=== PATIENT | male | born 1965 | race Caucasian/White ===

== ENCOUNTER 2022-01-05 13:18 | Emergency (ER) | payer BC, SELFPAY ==
[2022-01-05 14:04] VITALS: BP 131/77; PULSE 84; RESP 16; TEMP 37.2; O2SAT 96; BMI 27.6
--- NOTE | 2022-01-05 15:11 | CRLHL7_ITS ---
For Patients: As a result of the Century Cures Act, medical imaging exams and procedure reports are released immediately into your electronic medical record. You may view this report before your referring provider. If you have questions, please contact your health care provider. INDICATION: Right lower quadrant. TECHNIQUE: CT abdomen and pelvis acquired with 100 cc Isovue 370 IV contrast. COMPARISON: None. FINDINGS: Lower chest: Unremarkable. Liver: Unremarkable. Normal in size and attenuation. No suspicious masses. Gallbladder and bile ducts: Unremarkable. No stones or inflammation. No biliary dilatation. Pancreas: Unremarkable. No mass or inflammation. Spleen: Splenic calcifications. Normal in size. No masses. Adrenal glands: Unremarkable. No nodules. Kidneys: Tiny hypodensities in both kidneys, too small to characterize. No suspicious masses, stones, or hydronephrosis. GI tract: Mild sigmoid colonic wall thickening with mesenteric inflammatory stranding. Colonic diverticulosis. No bowel obstruction. Normal appendix. Vasculature: Abdominal aorta is normal in caliber. Mesenteric arteries are patent. Lymph nodes: No lymphadenopathy. Peritoneum/Abdominal Wall: Tiny fat containing umbilical hernia. No sign of mass or infiltration. No free air or significant free fluid. Pelvis: Mild prostatomegaly, abutting the base of the bladder. Mild diffuse circumferential bladder wall thickening. Bones: Mild age-indeterminate compression deformities of T10 and T12. IMPRESSION: Findings suggestive of focal sigmoid colitis/uncomplicated diverticulitis. No drainable fluid collections. Recommend correlation with prior age-appropriate screening colonoscopy. Mild diffuse circumferential bladder wall thickening. Recommend correlation with urinalysis if UTI suspected. No appendicitis, as questioned. Mild age-indeterminate T10 and T12 compression deformities. Recommend correlation for point tenderness. Please note that all CT scans at this facility use dose modulation, iterative reconstruction, and/or weight-based dosing when appropriate to reduce radiation dose to as low as reasonably achievable. Dictated by Jose Ramon Roth MD @ 01/05/2022 4:36:39 PM (Electronically Signed)
[2022-01-05 15:37] LABS: Appearance Urine Clear (Clear); Bilirubin Urine Negative (Negative); Blood Urine Negative (Negative); Color Urine Yellow (Yellow); Glucose Urine Negative (Negative); Ketones Urine Negative (Negative); Leukocyte Esterase Urine Negative (Negative); Nitrite Urine Negative (Negative); Protein Urine Negative (Negative); Specific Gravity Urine 1.015 (1.000-1.030); Urobilinogen Urine 0.2 (0.2-1.0)
[2022-01-05 15:38] LABS: Basophils Absolute Auto 0.05 K/uL (0.00-0.30); Basophils Percent Auto 0.5 % (0.0-3.0); Eosinophils Absolute Auto 0.09 K/uL (0.00-0.50); Hematocrit 46.7 % (37.0-53.0); Hemoglobin* 15.8 gm/dL (13.5-17.5); Immature Granulocytes Abs Auto 0.02 K/uL (0.00-0.30); Immature Granulocytes Pct Auto 0.2 %; Lymphocytes Absolute Auto 1.96 K/uL (0.90-2.90); Lymphocytes Percent Auto 20.8 % (20-44); Mean Corpuscular HGB Conc 34 gm/dL (32-36); Mean Corpuscular Hemoglobin 31 pg (26-34); Mean Corpuscular Volume 93 fL (80-100); Monocytes Percent Auto 7.6 % (0.0-11.0); Neutrophils Absolute Auto 6.59 K/uL (1.7-7.0); Neutrophils Percent Auto 69.9 % (42.0-72.0); Platelet Count* 222 K/uL (140-440); RDW Coefficient of Variation % 11.9 % (11.5-15.5); Red Blood Count 5.03 m/uL (4.30-5.90); White Blood Count* 9.43 K/uL (4.50-11.00)
[2022-01-05 15:45] LABS: Slide Review Reflex No
[2022-01-05 15:51] LABS: Albumin* 4.6 g/dL (3.3-5.0); Chloride* 106 mmol/L (96-114); Sodium* 139 mmol/L (135-149)
[2022-01-05 15:52] LABS: Potassium* 4.5 mmol/L (3.6-5.1)
[2022-01-05 15:54] LABS: Bilirubin Direct* 0.1 mg/dL (0.0-0.5); Bilirubin Total* 0.7 mg/dL (0.1-1.5); Carbon Dioxide* 26 mmol/L (20-32); Creatinine* 0.8 mg/dL (0.5-1.5); Est. Creatinine Clearance* 117.02; Estimated Glomerular Filt Rate 103 ml/min; Total Protein* 7.4 g/dL (6.0-8.3)
[2022-01-05 15:55] LABS: Alanine Aminotransferase* 25 U/L (4-50); Alkaline Phosphatase* 71 U/L (40-150); Aspartate Amino Transferase* 25 U/L (12-35); Blood Urea Nitrogen* 11 mg/dL (7-30); Calcium* 9.2 mg/dL (8.4-10.6); Glucose* 98 mg/dL (60-115)
[2022-01-05 15:57] LABS: C Reactive Protein* 1.8 mg/dL (0.5-1.0)
[2022-01-05 16:03] LABS: RBC Urine 0-2 (0-2); WBC Urine 0-2 (0-5)
[2022-01-05 17:12] VITALS: BP 124/77; PULSE 77; RESP 18; TEMP 36.7; O2SAT 96
--- NOTE | 2022-01-05 17:47 | ED.GENADULT ---
HPI - General Adult General Date Seen: 01/05/22 Chief complaint: Abdominal Pain Stated complaint: Abdominal pain, appendix concerns Time Seen by Provider: 01/05/22 14:54 Source: patient History of Present Illness HPI narrative: Patient is a 56-year-old male who presents for evaluation of right lower quadrant pain. He says it started to bother him on Saturday night or Saturday morning, he is not really sure when. It is vague, comes and goes, not probably ever completely gone but often pretty mild. It does not seem to follow any sort of pattern. He has not had any nausea or vomiting, maybe stools have been a little bit looser than usual but no black or bloody stools, no lindsay diarrhea. His appetite has been normal. He has not had any fevers. Denies significant urinary symptoms although maybe has had to urinate a little more frequently than usual. He has never had symptoms like this before. 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 He has had a previous colonoscopy, not sure when, and does not believe there are any abnormalities. He denies any previous abdominal surgeries. General health is good. He does smoke. Denies significant alcohol use. He works as a [employer], he does not recall any specific incident where he pulled a muscle. He has not noted any bulges and is not aware of previous hernia. Related Data Previous Rx's Medication Instructions Recorded amoxicillin 875 mg-potassium 1 tab PO BID #20 tabs 01/05/22 clavulanate 125 mg tablet Allergies Allergy/AdvReac Type Severity Reaction Status Date / Time No Known Drug Allergies Allergy Verified 01/05/22 14:13 Review of Systems Status of ROS: Reports: 10 or more systems reviewed and unremarkable except as noted in History and below PFSH FOR[facility]LY [facility] Social History Smoking Status: Current every day smoker Do you use any of these nicotine containing products: None Second hand tobacco smoke exposure: No How often do you have a drink containing alcohol: monthly or less AUDIT-C Alcohol total score: 1 Non-prescribed substance use: denies use Exam Narrative: Exam Narrative: Vital signs as noted above. In general, an alert, well-appearing patient. Head: Normocephalic, atraumatic. Eyes: Pupils are equal reactive. Extraocular movements are full. Conjunctivae are normal. ENT: Mucous membranes are moist. Throat is normal. Neck: Supple without lymphadenopathy. Heart: Regular rate and rhythm. No murmur or rub. Lungs: Clear bilaterally. No increased work of breathing, crackles or wheezes. Abdomen: Soft, entirely nontender. No rebound guarding or rigidity. Bowel sounds present. Extremities: Well perfused. Neurologic: Patient is alert and oriented to person and place. Speech is fluent. Face is symmetric. Moves all extremities equally. Affect: Normal. Skin: Warm and dry. Well perfused. Const: Vital Signs, click to edit/add: Vital Signs - 24 hr 01/05/22 14:04 01/05/22 17:12 Temperature 98.9 F 98.0 F Pulse Rate [Right Pulse Oximeter] 84 77 Respiratory Rate 16 18 Blood Pressure [Ri ght Upper Arm] 131/77 124/77 Pulse Oximetry 96 96 Oxygen Delivery Me thod Room Air Room Air Documenting provider has reviewed patient's vital signs: yes Course Course Hospital Course: Abdominal exam is underwhelming, however given duration of symptoms and patient's upcoming travel, I did elect to do workup including CT scan here, primarily to rule out diverticulitis. I felt appendicitis was very unlikely given patient's abdominal exam and ongoing appetite. I did check labs, CBC showed a normal white blood cell count and hemoglobin, his CRP was mildly elevated at 1.8, LFTs were normal, metabolic panel was entirely within normal limits. Urinalysis was negative, no blood and no evidence of urinary tract infection. CT scan with contrast was done and by my review showed evidence of inflammatory changes surrounding the sigmoid colon consistent with likely diverticulitis. I did not see evidence of abscess. Final radiology read is as follows: IMPRESSION: Findings suggestive of focal sigmoid colitis/uncomplicated diverticulitis. No drainable fluid collections. Recommend correlation with prior age-appropriate screening colonoscopy. Mild diffuse circumferential bladder wall thickening. Recommend correlation with urinalysis if UTI suspected. No appendicitis, as questioned. Mild age-indeterminate T10 and T12 compression deformities. Recommend correlation for point tenderness. I have discussed the CT findings with the patient. I have discussed as well the more recent option of observation versus antibiotics, and the risks the benefits of both choices. Ultimately, patient would be more comfortable treating with antibiotics and therefore will start him on Augmentin. We have discussed reasons that he should be seen again. Otherwise would recommend follow-up with primary care in a couple of weeks for recheck. Patient does not have any back pain, I do not think the compression fractures noted on CT scan are acute. Patient does note a longstanding history of back pain. Vital Signs Vital signs: Initial Vital Signs Temperature 98.9 F 01/05/22 14:04 Temperature Source Temporal Artery Scan 01/05/22 14:04 Pulse Rate 84 01/05/22 14:04 Pulse Rhythm 01/05/22 14:04 Respiratory Rate 16 01/05/22 14:04 Blood Pressure 131/77 01/05/22 14:04 Blood Pressure Mean 95 01/05/22 14:04 Blood Pressure Position Sitting 01/05/22 14:04 Pulse Oximetry 96 01/05/22 14:04 Oxygen Delivery Method 01/05/22 14:04 Vital Signs Temperature 98.9 F 01/05/22 14:04 Pulse Rate 84 01/05/22 14:04 Respiratory Rate 16 01/05/22 14:04 Blood Pressure 131/77 01/05/22 14:04 Pulse Oximetry 96 01/05/22 14:04 Oxygen Delivery Method 01/05/22 14:04 Temperature 98.0 F 01/05/22 17:12 Pulse Rate 77 01/05/22 17:12 Respiratory Rate 18 01/05/22 17:12 Blood Pressure 124/77 01/05/22 17:12 Pulse Oximetry 96 01/05/22 17:12 Oxygen Delivery Method 01/05/22 17:12 Medical Decision Making Lab Data Labs: Lab Results 01/05/22 01/05/22 01/05/22 Range/Units 15:25 15:25 15:25 WBC 9.43 (4.50-11.00) K/uL RBC 5.03 (4.30-5.90) m/uL Hgb 15.8 (13.5-17.5) gm/dL Hct 46.7 (37.0-53.0) % MCV 93 (80-100) fL MCH 31 (26-34) pg MCHC 34 (32-36) gm/dL RDW Coeff of Dipika 11.9 (11.5-15.5) % Plt Count 222 (140-440) K/uL Neut % (Auto) 69.9 (42.0-72.0) % Lymph % (Auto) 20.8 (20-44) % Collin % (Auto) 7.6 (0.0-11.0) % Eos % (Auto) 1.0 (0.0-7.0) % Baso % (Auto) 0.5 (0.0-3.0) % Neut # (Auto) 6.59 (1.7-7.0) K/uL Lymph # (Auto) 1.96 (0.90-2.90) K/uL Collin # (Auto) 0.70 (0.00-0.90) K/UL Eos # (Auto) 0.09 (0.00-0.50) K/uL Baso # (Auto) 0.05 (0.00-0.30) K/uL Abs Immat Gran (auto) 0.02 (0.00-0.30) K/uL Imm/Tot Granulo (auto) 0.2 % Sodium 139 (135-149) mmol/L Potassium 4.5 (3.6-5.1) mmol/L Chloride 106 (96-114) mmol/L Carbon Dioxide 26 (20-32) mmol/L BUN 11 (7-30) mg/dL Creatinine 0.8 (0.5-1.5) mg/dL Estimated Creat Clear 117.02 Estimated GFR 103 ml/min Glucose 98 (60-115) mg/dL Calcium 9.2 (8.4-10.6) mg/dL Total Bilirubin 0.7 (0.1-1.5) mg/dL Direct Bilirubin 0.1 (0.0-0.5) mg/dL AST 25 (12-35) U/L ALT 25 (4-50) U/L Alkaline Phosphatase 71 (40-150) U/L C-Reactive Protein 1.8 H (0.5-1.0) mg/dL Total Protein 7.4 (6.0-8.3) g/dL Albumin 4.6 (3.3-5.0) g/dL Urine Color Yellow (Yellow) Urine Appearance Clear (Clear) Urine pH 7.0 (5.0-8.5) Ur Specific [place] 1.015 (1.000-1.030) Urine Protein Negative (Negative) Urine Glucose (UA) Negative (Negative) Urine Ketones Negative (Negative) Urine Blood Negative (Negative) Urine Nitrite Negative (Negative) Urine Bilirubin Negative (Negative) Urine Urobilinogen 0.2 (0.2-1.0) Ur Leukocyte Esterase Negative (Negative) Urine RBC 0-2 (0-2) Urine WBC 0-2 (0-5) Ur Squamous Epith Cells None (None-Few) Urine Bacteria None (None) Discharge Plan Discharge Clinical Impression: Diverticulitis Patient Disposition: Home, Self-Care Condition: Stable Instructions: Diverticulitis (ED) Additional Instructions: Antibiotics as prescribed. If you are having more severe pain, new symptoms such as fever, vomiting, bloody stools, return for re-evaluation. Otherwise, recheck with clinic in 2 weeks. Prescriptions: New amoxicillin-pot clavulanate 875-125 mg tablet 1 tab PO BID Qty: 20 0RF Follow Up/Referrals: Kia Byers MD [Primary Care Provider] - Stand Alone Forms: [email or web address] Info Instructions
== END 2022-01-05 17:18 | disposition home or self-care (01) ==
PROVIDERS: Emergency Provider Emergency Medicine; PCP Family Medicine
DX: K57.92 Diverticulitis of intestine, part unspecified, without perforation or abscess without bleeding (principal)
CPT/HCPCS: 36415; 74177; 80048; 80076; 81001; 85025; 86140; 99284; Q9967

== ENCOUNTER 2022-07-30 15:34 | Outpatient (RCR) | payer BC, SELFPAY | END 2022-11-27 23:59 | disposition home or self-care (01) | PROVIDERS: PCP Family Medicine; Visit Provider Student in an Organized Health Care Education/Training Program | DX: M25.551 Pain in right hip (principal); M76.31 Iliotibial band syndrome, right leg; R53.1 Weakness; R26.81 Unsteadiness on feet; R26.9 Unspecified abnormalities of gait and mobility; Z51.89 Encounter for other specified aftercare | CPT/HCPCS: 97110; 97162 ==